=== PATIENT | male | born 1970 | race Caucasian/White ===

== ENCOUNTER 2019-07-16 14:28 | Emergency (ER) | payer SELFPAY ==
[2019-07-16 15:00] VITALS: BP 142/78
--- NOTE | 2019-07-16 15:20 | UC ---
Back Pain HPI - HPI Summary HPI Summary: 49-year-old male comes in with a chief complaint of back pain. 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 The main focus of the pain is lower thoracic upper lumbar region. The pain radiates up and down from there. This time the pain is about a 4 out of 10. At its worse it is about an 8 out of 10. Since the episode the pain has been variable. Generally is worsened by twisting turning bending and climbing stairs. Denies any weakness or numbness or difficulty controlling urine or bowels. Rest tends to help decrease the pain. He has briefly tried some ibuprofen and Tylenol. Patient prefers to not take medications if possible and therefore has not taken any medications today. - History of Current Complaint Chief Complaint: UCBackPain Stated Complaint: BACK PAIN-WC Time Seen by Provider: 07/16/19 14:58 Pain Intensity: 4 - Allergies/Home Medications Allergies/Adverse Reactions: Allergies Allergy/AdvReac Type Severity Reaction Status Date / Time No Known Allergies Allergy Verified 07/16/19 14:52 PMH/Surg Hx/FS Hx/Imm Hx Previously Healthy: Yes - Surgical History Surgical History: Yes Surgery Procedure, Year, and Place: hernia sx as child. umbilical hernia - Family History Known Family History: Positive: Non-Contributory - Social History Alcohol Use: Rare Substance Use Type: None Smoking Status (MU): Never Smoked Tobacco Review of Systems All Other Systems Reviewed And Are Negative: Yes Constitutional: Positive: Negative Skin: Positive: Negative Eyes: Positive: Negative ENT: Positive: Negative Respiratory: Positive: Negative Cardiovascular: Positive: Negative Gastrointestinal: Positive: Negative Genitourinary: Positive: Negative Motor: Positive: Negative Neurovascular: Positive: Negative Musculoskeletal: Positive: Other: - see hpi Neurological: Positive: Negative Psychological: Positive: Negative Is Patient Immunocompromised?: No Physical Exam Triage Information Reviewed: Yes Appearance: Well-Appearing, Well-Nourished, Pain Distress - mild with rom of back Vital Signs: Initial Vital Signs Temp 97.7 F 07/16/19 14:52 Pulse 54 07/16/19 14:52 Resp 18 07/16/19 14:52 BP 142/78 07/16/19 14:52 Pulse Ox 100 07/16/19 14:52 Vital Signs Reviewed: Yes Eye Exam: Normal Eyes: Positive: Conjunctiva Clear Neck: Positive: Supple Respiratory: Positive: Lungs clear, Normal breath sounds, No respiratory distress Musculoskeletal: Positive: Other: - Tenderness to palpation of the back is worse midline approximate T12 level. Legs have full range of motion. Strength is 5 out of 5 throughout lower extremities no sensation deficits. Patellar reflexes are 2+ bilaterally. Back pain does increase with hip flexion bilaterally. Neurological: Positive: Alert Psychological: Positive: Age Appropriate Behavior Skin Exam: Normal Back Pain Course/Dx - Course Course Of Treatment: Paper Machine Operator: Kasi Shukla C, ([id number]) Director Fundraising: AGATHA ( NUANCE) Report Date: 07/16/2019 16:14:00 Report Status: Final ====== Start of Report Content Patient Name: LARA ROBERTS Medical Record#: [id number] Ordering Physician: Fritz Ma MD Acct.#: [id number] : Age: 49 Sex: M Location: [facility] Exam Date: 07/16/19 1512 ADM Status: REG ER Order Information: THORACIC SPINE 2 S Accession Number : [id number] CPT: 27744 Indication: Lower thoracic upper lumbar pain post injury July 11, 2019. Comparison: July 05, 2011 lumbar sacral spine radiographs. Technique: Upright AP and lateral views thoracic spine. REPORT AND IMPRESSION: #. Negative for thoracic spine fracture or traumatic malalignment. # . Multilevel mild degenerative spondylosis. #. Unremarkable paraspinal soft tissue contours. < Electronically signed by Kasi Shukla MD in OV> 07/16/19 1611 Dictated By: Kasi Shukla MD Dictated Date/Time: 07/16/191607 Transcribed Date/Time: 1607 Copy to: CC:Vidya Velasquez MD; Fritz Ma MD Imaging - [facility] [address] [address] [place], [place] [address] [place] [address] ph [phone]) ph [phone]) ph ([phone]) End of Report Content ========= Paper Machine Operator: Moisés Muñoz F ([id number]) Director Fundraising: AGATHA, ( NUANCE) Report Date: 07/16/2019 16:12:00 Report Status: Final ====== Start of Report Content Patient Name: LARA ROEBRTS Medical Record#: [id number] Ordering Physician: Fritz Ma MD Acct.#: [id number] : Age: 49 Sex: M Location: [facility] Exam Date: 07/16/191511 ADM Status: REG ER Order Information: SP LUMBARSACRAL 4+ VWS Accession Number: [id number] CPT: 61106 INDICATION: Pain lower thoracic upper lumbar spine status post injury. COMPARISON: Comparison is made with a prior study from July 05, 2011. TECHNIQUE: 4 views of the lumbar sacral spine were obtained. FINDINGS: The vertebra are in normal alignment. No fracture is seen. There is mild to moderate diffuse degenerative disc disease. IMPRESSION: 1. NO EVIDENCE FOR FRACTURE. 2. MILD TO MODERATE DEGENERATIVE DISC DISEASE. <Electronically signed by Moisés Muñoz MD in OV> 07/16/191608 Dictated By: Moisés Muñoz MD Dictated Date/Time: 07/16/191605 Transcribed Date/Time: 07/16/191605 Copy to: CC:Vidya Velasquez MD; Fritz Ma MD Imaging - [facility] Imaging - [facility] [address] [address] ph [phone]) ph ([phone]) ph ([phone]) End of Report Content I discussed the x-rays with the patient. Plan at this time is ibuprofen 600 mg every 6 hours as needed and also lidocaine patches as needed. Follow-up with sports medicine or orthopedics. Out of work until cleared by medical provider. Discussed that if he had any neurologic symptoms or increasing or worsening pain he needs to get reevaluated sooner. - Differential Dx/Diagnosis Provider Diagnosis: Back pain of thoracolumbar region Discharge ED - Sign-Out/Discharge Documenting (check all that apply): Patient Departure All imaging exams completed and their final reports reviewed: Yes - Discharge Plan Condition: Stable Disposition: HOME Prescriptions: Ibuprofen TAB* [Motrin TAB* 600 MG] 600 mg PO Q6H PRN #30 tab PRN Reason: Pain - Moderate Lidocaine PATCH 5%* [Lidoderm 5% Patch*] 1 patch TRANSDERM DAILY PRN #10 patch PRN Reason: Pain - Moderate Patient Education Materials: Back Pain (ED), Lower Back Exercises (ED) Forms: *Work Release Referrals: [facility] [Provider Group] Vidya Velasquez MD [Primary Care Provider] - Julio Hook MD [Medical Doctor] - Additional Instructions: FOLLOW UP WITH SPORTS MEDICINE OR OCCUPATIONAL MEDICINE, DR HOOK. GET REEVALUATED SOONER IF NOT IMPROVING OR WORSE; PAIN, WEAKNESS, NUMBNESS, DIFFICULTY CONTROLLING BOWEL OR BLADDER OR ANY QUESTIONS OR CONCERNS. - Billing Disposition and Condition Condition: STABLE Disposition: Home
== END 2019-07-16 16:35 | disposition home or self-care (01) ==
LOC: UCCORT 14:28
DX: M54.6 Pain in thoracic spine (principal); M54.5 Low back pain; M47.894 Other spondylosis, thoracic region; M51.37 Other intervertebral disc degeneration, lumbosacral region
CPT/HCPCS: 72070; 72110; 99212; G0463